=== PATIENT | male | born 1965 | race Caucasian/White ===

== ENCOUNTER → 2016-03-28 | Outpatient (CLI) | payer BC ==
[2016-03-28 11:01] LABS: Hemoglobin A1C 7.5 % (4.2-6.1)
[2016-03-28 11:08] LABS: Bilirubin, Delta 0.3 mg/dL (0.0-0.2); Total Bilirubin 1.9 mg/dL (0.2-1.3); Total Protein 7.3 g/dL (6.3-8.2)
== END | disposition home or self-care (01) ==
LOC: LABWHC1 10:13
PROVIDERS: ATTEND Internal Medicine Endocrinology, Diabetes & Metabolism
DX: E11.69 Type 2 diabetes mellitus with other specified complication (principal); Z79.4 Long term (current) use of insulin
CPT/HCPCS: 36415; 80061; 80076; 82550; 82947; 83036; 84681

== ENCOUNTER 2024-05-19 12:50 | Inpatient (IN) | payer BC ==
[2024-05-19] MEDS: SODIUM CHLORIDE 0.9% 1,000 ML IV SCH (16:30)
[2024-05-19 16:32] LABS: Glucose,Whole Blood 122 mg/dL (70-110)
[2024-05-19] MEDS ORDERED: ALPRAZolam 0.25 MG TAB PO PRN (17:17)
[2024-05-19] MEDS ORDERED: ALPRAZolam 0.5 MG TAB PO PRN (17:17)
[2024-05-19] MEDS ORDERED: HEPARIN SODIUM 1,000 UN/ML (10ML VL) IV PRN (17:22)
[2024-05-19] MEDS ORDERED: ATORVASTATIN 80 MG TAB PO SCH (17:30)
[2024-05-19] MEDS ORDERED: DAPAGLIFLOZIN PROPANEDIOL 5 MG TABLET PO SCH (17:30)
[2024-05-19] MEDS: SODIUM CHLORIDE 0.9% 1,000 ML in EMPTY BAG 1 BAG IV SCH (17:31)
[2024-05-19] MEDS: HEPARIN SOD,PORK IN 0.45% NACL 25,000 UNIT in 0.45% NACL 1 250ML.BAG IV SCH (17:36)
[2024-05-19] MEDS: INSULIN LISPRO (HumaLOG) 100 UNIT/ML 10 mL VL SQ SCH (18:25)
[2024-05-19 19:38] LABS: Basophils % (A) 0 %; Eosinophils % (A) 1 %; HCT 48.1 % (39.0-53.0); HGB 14.4 gm/dL (13.0-17.5); Lymphocytes % (A) 28 %; MCH 26.1 pg (25.0-35.0); MCHC 29.9 g/dL (31.0-37.0); MCV 87.2 fL (80.0-100.0); Mean Platelet Volume 7.9; Monocytes # (A) 0.4 k/uL (0-1.0); Monocytes % (A) 6 %; Neutrophils # (A) 4.6 k/uL (1.3-7.7); Neutrophils % (A) 65 %; Platelet Count 276 k/uL (150-450); RBC 5.52 m/uL (4.30-5.90); WBC 7.1 k/uL (3.8-10.6)
[2024-05-19 20:21] LABS: Glucose,Whole Blood 127 mg/dL (70-110)
[2024-05-19] MEDS: INSULIN GLARGINE (LANTUS) 100 UNIT/ML SYR SQ SCH (21:30)
[2024-05-19] MEDS: METOPROLOL TARTRATE 25 MG TAB PO SCH (21:30)
[2024-05-19] MEDS: ATORVASTATIN 80 MG TAB PO SCH (21:30)
[2024-05-20] MEDS: ASPIRIN 325 MG TAB PO ONE (05:44)
[2024-05-20] MEDS: ATORVASTATIN 80 MG TAB PO ONE (05:44)
[2024-05-20] MEDS: LOSARTAN 25 MG TAB PO SCH (06:26)
[2024-05-20] MEDS: ISOSORBIDE MONONITRATE ER 30 MG TAB.ER.24H PO SCH (06:27)
[2024-05-20 06:38] LABS: Glucose,Whole Blood 131 mg/dL (70-110)
[2024-05-20] MEDS ORDERED: HEPARIN SODIUM,PORCINE (1 ML) 2,500 UNIT in SODIUM CHLORIDE 0.9% 250 ML IRRIGATION PRN (07:00)
[2024-05-20] MEDS ORDERED: HEPARIN SODIUM,PORCINE 10,000 UNIT in SODIUM CHLORIDE 0.9% 1,000 ML IRRIGATION PRN (07:00)
[2024-05-20] MEDS: SODIUM CHLORIDE 0.9% 1,000 ML IV ONE (07:14)
[2024-05-20] MEDS: HEPARIN SODIUM,PORCINE 10,000 UNIT in SODIUM CHLORIDE 0.9% 1,000 ML IRRIGATION ONE (07:15)
[2024-05-20] MEDS: HEPARIN SODIUM,PORCINE (1 ML) 2,500 UNIT in SODIUM CHLORIDE 0.9% 250 ML IRRIGATION ONE (07:15)
[2024-05-20] MEDS: MIDAZOLAM 2 MG/2 ML VIAL IVP ONE (07:38)
[2024-05-20] MEDS: LIDOCAINE 1% INJ 10MG/ML (20 ML MDV) SQ ONE (07:39)
[2024-05-20] MEDS: VERAPAMIL SYRINGE (5 MG/10 ML) INTRAARTER ONE (07:42)
[2024-05-20] MEDS: IOPAMIDOL-370 100ML BTL INJ ONE (07:49)
[2024-05-20] MEDS ORDERED: RX INFO: IV CONTRAST WAS GIVEN 1 EACH MISC MISCELLANE PRN (07:57)
--- NOTE | 2024-05-20 08:04 | P.PCN ---
Date of Procedure: 05/20/24 Operative Findings: CARDIAC CATHETERIZATION PERFORMING PHYSICIAN: You Infante MD, RPVI PROCEDURE PERFORMED: 1. Selective right and left coronary angiogram 2. Left heart catheterization 3. Ultrasound-guided access of the right radial artery INDICATION: Acute coronary syndrome in this 59-year-old gentleman who is known to have diabetes and hypertension and dyslipidemia and coronary artery disease based on heart catheterization in 2012 was treated medically at that point COMPLICATION: None APPROACH: Right radial artery LEVEL OF SEDATION: Moderate with a sedation length of 15 minutes PROCEDURE DESCRIPTION: After obtaining an informed consent, the patient was brought to cardiac slab installer. Local anesthesia was performed using lidocaine subcutaneously. The right radial artery was cannulated using Seldinger technique, under ultrasound guidance, the guidewire passed easily, following that we advanced a 5-Spanish sheath dilator assembly, the wire and dilator were removed and sheath was flushed. Following that, 2 mg of verapamil along with 5000 unit heparin were given. Selective right and left coronary angiogram using a 5-Spanish JR4 and JL 3.5 catheters. Following that we did left heart catheterization using 5-Spanish pigtail catheter. The procedure was completed there was no complication. SELECTIVE CORONARY ANGIOGRAM: The right coronary artery: Large-caliber vessel and a dominant vessel appears to be chronically occluded in the midportion and fills by ipsilateral and contralateral collateral Left main: Has mild disease only and calcified vessel The left circumflex: Large-caliber vessel nondominant vessel. The left circumflex gives rise into an OM1 which is a large-caliber vessel with severe ostial lesion and OM 2 which is also a large-caliber vessel with critical disease as well. The left anterior descending artery: Has a long tubular lesion in the proximal to midportion with critical disease as well HEMODYNAMICS: The LVEDP was about 4 mmHg with no gradient was identified across aortic valve CONCLUSION: 1. Severe triple-vessel CAD with REPAIR CLERK of the RCA and critical LCx and critical LAD as well 2. Low left-sided filling pressure POSTPROCEDURE MANAGEMENT: The patient need to be evaluated for bypass surgery
[2024-05-20] MEDS: SODIUM CHLORIDE 0.9% 1,000 ML IV SCH (08:10)
[2024-05-20 08:17] LABS: Basophils % (A) 0 %; Eosinophils # (A) 0.2 k/uL (0-0.7); Eosinophils % (A) 2 %; HCT 48.3 % (39.0-53.0); HGB 15.1 gm/dL (13.0-17.5); Hypochromasia Slight; Lymphocytes # (A) 2.4 k/uL (1.0-4.8); Lymphocytes % (A) 31 %; MCH 27.2 pg (25.0-35.0); MCHC 31.2 g/dL (31.0-37.0); MCV 87.1 fL (80.0-100.0); Mean Platelet Volume 7.7; Monocytes # (A) 0.5 k/uL (0-1.0); Monocytes % (A) 7 %; Neutrophils # (A) 4.4 k/uL (1.3-7.7); Neutrophils % (A) 58 %; Platelet Count 275 k/uL (150-450); RBC 5.54 m/uL (4.30-5.90); RDW 13.7 % (11.5-15.5); WBC 7.6 k/uL (3.8-10.6)
[2024-05-20] MEDS ORDERED: ASPIRIN 81 MG PO SCH ×2 (09:00)
[2024-05-20] MEDS: DAPAGLIFLOZIN PROPANEDIOL 5 MG TABLET PO SCH (09:47)
[2024-05-20 11:54] LABS: Glucose,Whole Blood 132 mg/dL (70-110)
--- NOTE | 2024-05-20 14:50 | P.PN ---
Subjective Progress Note Date: 05/20/24 This is a 59-year-old male follows with a belly dump driver at [facility] with past medical history of coronary artery disease, diabetes, hypertension, hyperlipidemia. Patient gives history that he had recently seen his belly dump driver and placed on Imdur. He states he has been having some chest discomfort over the past 1-1/2 months which he thought was related to stress and feeling that he could not get a deep breath with some chest discomfort. This was coming and going but he surprisingly did not have it when he was on the elliptical machine. He states it would sometimes come and go when he was going upstairs. He denies any radiation of the pain. He states he woke up on Thursday at 630 and he was having discomfort and he walked around for a little bit was feeling okay. When he was taking the garbage out to the road, he again experienced pain and it was more severe. He then called 911 and went to [facility] where he was evaluated by Dr. Infante. Troponins were elevated at 230 and 739, creatinine was 0.78 and hemoglobin 14.3. Patient was transferred to [facility] for further evaluation. He underwent cardiac catheterization which revealed triple-vessel disease. Patient plans to follow-up with his belly dump driver at [facility]. Blood pressure 119/64, heart rate 48, pulse ox 92% on room air. CBC within normal limits. Echocardiogram performed at [facility] revealed EF of 50%, aortic valve is normal in structure, mild mitral regurgitation. Physical examination: Gen: This is a 59-year-old male in no acute distress VS: reviewed HEENT: Head is atraumatic, normocephalic. Pupils equal, round. Sclerae is anicteric. NECK: Supple. No JVD. LUNGS: Clear to auscultation. No wheezes or rhonchi. No intercostal retractio ns. HEART: Regular rate and rhythm. No murmur. ABDOMEN: Soft No tenderness. EXTREMITIES: No pedal edema. No calf tenderness. NEUROLOGICAL: Patient is awake, alert and oriented x3. Assessment: NSTEMI status post cardiac catheterization with three-vessel disease History of coronary artery disease Diabetes Hypertension Hyperlipidemia Plan: Continue cardiac medications: Aspirin 81 mg daily, Lipitor 80 mg at bedtime, Farxiga 5 mg daily, Imdur 30 mg daily, losartan 25 mg daily, Lopressor 25 mg at bedtime. Plan to monitor patient overnight and discharge home tomorrow. Patient will follow-up outpatient with his belly dump driver at [facility]. Nurse practitioner note has been reviewed, I agree with documented findings and plan of care. Patient was seen and examined. Objective - Vital Signs Vital signs: Vital Signs Temp 98.0 F 05/20/24 03:28 Pulse 48 L 05/20/24 03:28 Resp 18 05/20/24 03:28 BP 119/64 05/20/24 03:28 Pulse Ox 92 L 05/20/24 03:28 FiO2 Intake & Output 05/19/24 05/20/24 05/20/24 18:59 06:59 18:59 Intake Total 307.597 293 Balance 307.597 293 Weight 110.4 kg 110.4 kg Intake: IV 175 Intake, IV Titration 187.597 Amount Heparin Sod,Pork in 0.45% 187.597 NaCl 25,000 unit In 0.45 % NaCl 1 250ml.bag @ 16.7 UNITS/KG/HR 18.437 mls/ hr IV .[id number] [facility] Rx#: [id number] Oral 120 118 Other: Voiding Method Toilet - Labs CBC & Chem 7: 05/20/24 07:09 Labs: Abnormal Lab Results - Last 24 Hours (Table) 05/19/24 05/19/24 05/19/24 Range/Units 16:30 19:01 20:18 MCHC 29.9 L (31.0-37.0) g/dL POC Glucose (mg/dL) 122 H 127 H (70-110) mg/dL 05/20/24 05/20/24 Range/Units 06:30 11:52 MCHC (31.0-37.0) g/dL POC Glucose (mg/dL) 131 H 132 H (70-110) mg/dL
[2024-05-20 16:09] LABS: Glucose,Whole Blood 53 mg/dL (70-110)
[2024-05-20 16:38] LABS: Glucose,Whole Blood 118 mg/dL (70-110)
[2024-05-20] MEDS: NITROGLYCERIN SL TABS 0.4 MG TAB SUBLINGUAL PRN (16:44)
[2024-05-20] MEDS ORDERED: HEPARIN SODIUM 1,000 UN/ML (10ML VL) IV PRN (17:06)
[2024-05-20] MEDS: HEPARIN SOD,PORK IN 0.45% NACL 25,000 UNIT in 0.45% NACL 1 250ML.BAG IV SCH (17:32)
[2024-05-20] MEDS: HEPARIN SODIUM 1,000 UN/ML (10ML VL) IV ONE (17:33)
[2024-05-20 17:47] LABS: Basophils % (A) 0 %; Eosinophils # (A) 0.1 k/uL (0-0.7); Eosinophils % (A) 2 %; HCT 46.7 % (39.0-53.0); HGB 14.3 gm/dL (13.0-17.5); Hypochromasia Moderate; Lymphocytes % (A) 27 %; MCH 27.1 pg (25.0-35.0); MCHC 30.6 g/dL (31.0-37.0); MCV 88.8 fL (80.0-100.0); Mean Platelet Volume 7.3; Monocytes # (A) 0.5 k/uL (0-1.0); Monocytes % (A) 7 %; Neutrophils # (A) 4.6 k/uL (1.3-7.7); Neutrophils % (A) 61 %; Platelet Count 261 k/uL (150-450); RBC 5.26 m/uL (4.30-5.90); RDW 13.7 % (11.5-15.5); WBC 7.5 k/uL (3.8-10.6)
[2024-05-20 17:57] LABS: Partial Thromboplastin Time 22.5 sec (22.0-30.0)
[2024-05-20] MEDS: PANTOPRAZOLE 40 MG TABLET PO STA (19:04)
[2024-05-20] MEDS: NITROGLYCERIN-D5W PMX 50 MG in DEXTROSE/WATER 1 250ML.BAG IV SCH (19:09)
[2024-05-20 20:40] LABS: Glucose,Whole Blood 159 mg/dL (70-110)
[2024-05-21 06:25] LABS: Glucose,Whole Blood 129 mg/dL (70-110)
[2024-05-21] MEDS: PANTOPRAZOLE 40 MG TABLET PO SCH (06:35)
[2024-05-21 06:50] LABS: Basophils % (A) 0 %; Eosinophils # (A) 0.2 k/uL (0-0.7); Eosinophils % (A) 3 %; HCT 44.3 % (39.0-53.0); HGB 13.7 gm/dL (13.0-17.5); Lymphocytes # (A) 2.7 k/uL (1.0-4.8); Lymphocytes % (A) 35 %; MCH 26.8 pg (25.0-35.0); MCV 86.4 fL (80.0-100.0); Monocytes # (A) 0.5 k/uL (0-1.0); Monocytes % (A) 6 %; Neutrophils # (A) 4.1 k/uL (1.3-7.7); Neutrophils % (A) 54 %; Platelet Count 234 k/uL (150-450); RBC 5.12 m/uL (4.30-5.90); RDW 14.1 % (11.5-15.5); WBC 7.5 k/uL (3.8-10.6)
[2024-05-21 06:58] LABS: Prothrombin Time 11.3 sec (10.0-12.5)
[2024-05-21 08:31] VITALS: RESP 18
[2024-05-21] MEDS: ASPIRIN 81 MG PO SCH (08:37)
--- NOTE | 2024-05-21 09:41 | P.GSCN ---
History of Present Illness Consult date: 05/21/24 Reason for Consult: Triple-vessel coronary artery disease, non-STEMI this admission Requesting physician: You Infante History of present illness: This is a 59-year-old gentleman who follows outpatient with Dr. Lambert for primary care as well as a bus monitor out of [facility]. He has a previous medical history of coronary artery disease with no PCI (med management only), hypertension, hyperlipidemia, insulin-dependent diabetes, questionable sleep apnea without home CPAP use, pneumonia greater than 30 days ago, lifelong non-smoker, and significant family history of premature coronary artery disease with both parents and multiple siblings diagnosed with early CAD. Apparently he has been having intermittent chest pain with activity. He saw his primary bus monitor out of [facility] he prescribed Imdur for him. He had significant chest pain a couple days ago and called EMS, who brought him to [facility]. Review of the chart from [facility] reveals EKG with nonspecific ST changes, as well as elevated troponin, he was ruled in for non- STEMI and transferred to [facility] for heart catheterization. This was completed yesterday by Dr. Infante revealing severe triple-vessel coronary artery disease with complete total occlusion of the RCA as well as critical disease in the proximal to midportion of the LAD and severe ostial lesion in the OM 1 branch and OM 2 branch of the left circumflex artery. Due to these findings consultation was placed to cardiothoracic surgery for surgical revascularization recommendations. Review of Systems Review of systems was completed and was negative except as noted - Cardiovascular Reports as per HPI, Reports chest pain Past Medical History Past Medical History: Coronary Artery Disease (CAD), Diabetes Mellitus, Hyperlipidemia, Hypertension, Myocardial Infarction (LA), Pneumonia History of Any Multi-Drug Resistant Organisms: None Reported Past Surgical History: Heart Catheterization Additional Past Surgical History / Comment(s): heart cath 2017 Past Anesthesia/Blood Transfusion Reactions: No Reported Reaction Past Psychological History: No Psychological Hx Reported Smoking Status: Never smoker Past Alcohol Use History: None Reported Past Drug Use History: None Reported - Past Family History Father Family Medical History: Coronary Artery Disease (CAD) Additional Family Medical History / Comment(s): Had CABG x 2 Mother Family Medical History: Coronary Artery Disease (CAD) Additional Family Medical History / Comment(s): Had CABG Brother(s) Family Medical History: Coronary Artery Disease (CAD), Myocardial Infarction (LA) Additional Family Medical History / Comment(s): 2 brothers had early CABG, another brother of myocardial infarction at 48 years old Medications and Allergies Home Medications Medication Instructions Recorded Confirmed Type Aspirin [Adult Low Dose Aspirin EC] 81 mg PO DAILY 05/19/24 05/19/24 History Atorvastatin [Lipitor] 80 mg PO HS 05/19/24 05/19/24 History Empagliflozin [Jardiance] 10 mg PO DAILY 05/19/24 05/19/24 History Insulin Aspart [NovoLOG Flexpen] 24 units SQ AC-TID 05/19/24 05/19/24 History Insulin Glargine,Hum.rec.anlog 15 units SQ HS 05/19/24 05/19/24 History [Toujeo Solostar] Isosorbide Mononitrate ER [Imdur] 30 mg PO DAILY 05/19/24 05/19/24 History Losartan [Cozaar] 25 mg PO DAILY 05/19/24 05/19/24 History Metoprolol Tartrate [Lopressor] 25 mg PO HS 05/19/24 05/19/24 History metFORMIN HCL ER [Glucophage XR] 2,000 mg PO HS 05/19/24 05/19/24 History Allergies Allergy/AdvReac Type Severity Reaction Status Date / Time No Known Allergies Allergy Verified 05/19/24 19:30 Surgical - Exam Vital Signs Temp Pulse Resp BP Pulse Ox 98.8 F 56 L 16 135/71 96 05/19/24 15:44 05/19/24 15:44 05/19/24 15:44 05/19/24 15:44 05/19/24 15:44 CONSTITUTIONAL: Awake and alert, appears comfortable, cooperative, well-deve loped, well-nourished, no pain, no acute distress EYES: Pupils equal, round, reactive to light, normal ocular movement ENT: Moist mucous membranes without oral lesions present NECK: No masses, no bruits, trachea midline RESPIRATORY: Lungs sounds clear to auscultation bilaterally. Respirations even, nonlabored. Currently on room air with oxygen saturation 97%. Strong cough. No chest wall deformities. No clubbing or cyanosis present CARDIOVASCULAR: S1, S2 present. Slow but regular rate and rhythm, sinus bradycardia on telemetry. Palpable peripheral pulses bilaterally. No edema present. No calf pain or tenderness noted. No significant lower extremity varicosities noted GASTROINTESTINAL: Abdomen soft, nontender, nondistended without masses or organomegaly noted. There is no rebound or guarding present. Active bowel sounds present 4 quadrants. GENITOURINARY: Deferred INTEGUMENTARY: Skin is warm and dry with evidence of good perfusion. NEUROLOGIC: Cranial nerves II through XII intact, normal coordination, no obvious motor or sensory deficits, speech is normal MUSKULOSKELETAL: Able to move all extremities, strength equal bilaterally, normal posture PSYCHIATRIC: Alert and oriented to person place and time, appropriate affect, intact judgment and insight CLINICAL FRAILTY SCORE 3 Results - Labs 05/22/24 07:47 05/22/24 07:47 Abnormal Lab Results - Last 24 Hours (Table) 05/20/24 05/20/24 05/20/24 Range/Units 11:52 16:07 16:36 MCHC (31.0-37.0) g/dL APTT (22.0-30.0) sec POC Glucose (mg/dL) 132 H 53 L 118 H (70-110) mg/dL 05/20/24 05/20/24 05/20/24 Range/Units 17:27 20:38 23:34 MCHC 30.6 L (31.0-37.0) g/dL APTT 31.1 H (22.0-30.0) sec POC Glucose (mg/dL) 159 H (70-110) mg/dL 05/21/24 05/21/24 Range/Units 06:22 06:29 MCHC (31.0-37.0) g/dL APTT 38.9 H (22.0-30.0) sec POC Glucose (mg/dL) 129 H (70-110) mg/dL - Imaging EKG: image reviewed Additional studies: Heart catheterization films reviewed Assessment and Plan Assessment: Triple-vessel coronary artery disease, non-STEMI this admission Chest pain, secondary to above History of coronary artery disease with no PCI (med management only at patient's request) Hypertension Hyperlipidemia Insulin-dependent diabetes Questionable sleep apnea without home CPAP use Pneumonia greater than 30 days ago Lifelong non-smoker Significant family history of premature coronary artery disease with both parents and multiple siblings diagnosed with early CAD Plan: The patient was seen and examined with his present this morning. Chart/diagnostics were reviewed. Case will be discussed with Dr. Liz. The usual perioperative course of open-heart surgery was discussed in great detail with the patient and his , risks and benefits reviewed, all questions were answered to the best of my ability. The patient and his are still considering wanting surgery to be done in the [place] area because they have no family up here and are very worried about support and help after surgery. They feel any help or care he would need after surgery should be done in the [place] area where they have many family members living. Will hold off on preoperative testing until decision is made about where surgery will take place as we do not want the patient to have to deal with repeat testing. The patient currently has no chest pain or shortness of breath, he is in good spirits, he and his asked appropriate questions. Continue aspirin, statin, beta- kobi therapy. Needs tight blood sugar control to prevent infection. Heparin, IV nitro per cardiology. Increase activity as tolerated. More recommendations to follow once Dr. Liz has reviewed the case and talk with the patient. Thank you Dr. Infante for this consult, we will continue to follow along with you and make further recommendations as appropriate. I have personally seen and examined the patient, performed the documentation and the assessment and plan as written. Number of minutes spent on the visit: 30. TERRENCE Lino I have seen and examined the patient and agree with the assessment and plan as dictated by the nurse practitioner. Number of minutes spent on the visit:40. Sean Liz MD
[2024-05-21 11:44] LABS: Glucose,Whole Blood 99 mg/dL (70-110)
--- NOTE | 2024-05-21 13:26 | P.PN ---
Subjective Progress Note Date: 05/21/24 This is a 59-year-old male follows with a security installation technician at [facility] with past medical history of coronary artery disease, diabetes, hypertension, hyperlipidemia. Patient gives history that he had recently seen his security installation technician and placed on Imdur. He states he has been having some chest discomfort over the past 1-1/2 months which he thought was related to stress and feeling that he could not get a deep breath with some chest discomfort. This was coming and going but he surprisingly did not have it when he was on the elliptical machine. He states it would sometimes come and go when he was going upstairs. He denies any radiation of the pain. He states he woke up on Thursday at 630 and he was having discomfort and he walked around for a little bit was feeling okay. When he was taking the garbage out to the road, he again experienced pain and it was more severe. He then called 911 and went to [facility] where he was evaluated by Dr. Infante. Troponins were elevated at 230 and 739, creatinine was 0.78 and hemoglobin 14.3. Patient was transferred to [facility] for further evaluation. He underwent cardiac catheterization which revealed triple-vessel disease. Patient plans to follow-up with his security installation technician at [facility]. Blood pressure 119/64, heart rate 48, pulse ox 92% on room air. CBC within normal limits. Echocardiogram performed at [facility] revealed EF of 50%, aortic valve is normal in structure, mild mitral regurgitation. 05/21 Patient seen and examined. Last evening, patient had episode of hypoglycemia and he ate some food following that he developed chest pain very similar to that he had on Thursday that brought him into the hospital. He states he sat up and burped a few times and the discomfort went away. He was started on a heparin drip and nitroglycerin drip at the time. His pain has not returned. He was also started on Protonix. Transfer to [facility] is not really an option at this point and patient given a number of options to consider. He has been seen by cardiothoracic surgery and at this time it seems he still wants to go to the [facility] for surgery. Blood pressure 147/81, heart rate 56, pulse ox 99% on room air. Repeat troponin ordered. Physical examination: Gen: This is a 59-year-old male in no acute distress VS: reviewed HEENT: Head is atraumatic, normocephalic. Pupils equal, round. Sclerae is anicteric. NECK: Supple. No JVD. LUNGS: Clear to auscultation. No wheezes or rhonchi. No intercostal retractions. HEART: Regular rate and rhythm. No murmur. ABDOMEN: Soft No tenderness. EXTREMITIES: No pedal edema. No calf tenderness. NEUROLOGICAL: Patient is awake, alert and oriented x3. Assessment: NSTEMI status post cardiac catheterization with three-vessel disease History of coronary artery disease Diabetes Hypertension Hyperlipidemia Plan: Continue cardiac medications: Aspirin 81 mg daily, Lipitor 80 mg at bedtime, Farxiga 5 mg daily, Imdur 30 mg daily, losartan 25 mg daily, Lopressor 25 mg at bedtime. Continue patient on heparin drip and nitroglycerin drip Obtain repeat troponin Continue to monitor patient overnight Further recommendations will be determined tomorrow after discussion with the patient. Nurse practitioner note has been reviewed, I agree with documented findings and plan of care. Patient was seen and examined. Objective - Vital Signs Vital signs: Vital Signs Temp 98.3 F 05/21/24 08:00 Pulse 55 L 05/21/24 08:00 Resp 18 05/21/24 08:00 BP 164/86 05/21/24 08:00 Pulse Ox 97 05/21/24 08:00 FiO2 Intake & Output 05/20/24 05/21/24 05/21/24 18:59 06:59 18:59 Intake Total 411 89.645 128.616 Balance 411 89.645 128.616 Weight 111.3 kg Intake: IV 175 Intake, IV Titration 89.645 128.616 Amount Heparin Sod,Pork in 0.45% 89.645 128.616 NaCl 25,000 unit In 0.45 % NaCl 1 250ml.bag @ 12 UNITS/KG/HR 13.248 mls/hr IV .[id number] [facility] Rx#: [id number] Oral 236 Other: Voiding Method Toilet Toilet # Voids 1 1 - Labs CBC & Chem 7: 05/21/24 06:29 Labs: Abnormal Lab Results - Last 24 Hours (Table) 05/20/24 05/20/24 05/20/24 Range/Units 11:52 16:07 16:36 MCHC (31.0-37.0) g/dL APTT (22.0-30.0) sec POC Glucose (mg/dL) 132 H 53 L 118 H (70-110) mg/dL 05/20/24 05/20/24 05/20/24 Range/Units 17:27 20:38 23:34 MCHC 30.6 L (31.0-37.0) g/dL APTT 31.1 H (22.0-30.0) sec POC Glucose (mg/dL) 159 H (70-110) mg/dL 05/21/24 05/21/24 Range/Units 06:22 06:29 MCHC (31.0-37.0) g/dL APTT 38.9 H (22.0-30.0) sec POC Glucose (mg/dL) 129 H (70-110) mg/dL
--- NOTE | 2024-05-21 14:17 | P.HPIM ---
History of Present Illness H&P Date: 05/20/24 Chief Complaint: NSTEMI 59-year-old male follows with a surg physician asst at [facility] with past medical history of coronary artery disease, diabetes, hypertension, hy perlipidemia. Patient gives history that he had recently seen his surg physician asst and placed on Imdur. He states he has been having some chest discomfort over the past 1-1/2 months which he thought was related to stress and feeling that he could not get a deep breath with some chest discomfort. This was coming and going but he surprisingly did not have it when he was on the elliptical machine. He states it would sometimes come and go when he was going upstairs. He denies any radiation of the pain. He states he woke up on Thursday at 630 and he was having discomfort and he walked around for a little bit was feeling okay. When he was taking the garbage out to the road, he again experienced pain and it was more severe. He then called 911 and went to [facility] where he was evaluated by Dr. Infante. Troponins were elevated at 230 and 739, creatinine was 0.78 and hemoglobin 14.3. Patient was transferred to [facility] for further evaluation. He underwent cardiac catheterization which revealed triple-vessel disease. --Patient awaits evaluation by cardiothoracic surgery for possible CABG versus transfer to [facility] for further evaluation Review of Systems REVIEW OF SYSTEMS: CONSTITUTIONAL: No fever, no malaise, no fatigue. HEENT: No recent visual problems or hearing problems. Denied any sore throat. CARDIOVASCULAR: No chest pain, orthopnea, PND, no palpitations, no syncope. PULMONARY: No shortness of breath, no cough, no hemoptysis. GASTROINTESTINAL: No diarrhea, no nausea, no vomiting, no abdominal pain. NEUROLOGICAL: No headaches, no weakness, no numbness. HEMATOLOGICAL: Denies any bleeding or petechiae. GENITOURINARY: Denies any burning micturition, frequency, or urgency. MUSCULOSKELETAL/RHEUMATOLOGICAL: Denies any joint pain, swelling, or any muscle pain. ENDOCRINE: Denies any polyuria or polydipsia. The rest of the 14-point review of systems is negative. Past Medical History Past Medical History: Coronary Artery Disease (CAD), Diabetes Mellitus, Hyperl ipidemia, Hypertension History of Any Multi-Drug Resistant Organisms: None Reported Past Surgical History: Heart Catheterization Additional Past Surgical History / Comment(s): heart cath 2016 Past Anesthesia/Blood Transfusion Reactions: No Reported Reaction Past Psychological History: No Psychological Hx Reported Smoking Status: Never smoker - Past Family History Father Family Medical History: Coronary Artery Disease (CAD) Mother Family Medical History: Coronary Artery Disease (CAD) Additional Family Medical History / Comment(s): Had CABG Brother(s) Family Medical History: Coronary Artery Disease (CAD), Myocardial Infarction ([place]) Additional Family Medical History / Comment(s): 2 brothers had early CABG, another brother of myocardial infarction at 48 years old Medications and Allergies Home Medications Medication Instructions Recorded Confirmed Type Aspirin [Adult Low Dose Aspirin EC] 81 mg PO DAILY 05/19/24 05/19/24 History Atorvastatin [Lipitor] 80 mg PO HS 05/19/24 05/19/24 History Empagliflozin [Jardiance] 10 mg PO DAILY 05/19/24 05/19/24 History Insulin Aspart [NovoLOG Flexpen] 24 units SQ AC-TID 05/19/24 05/19/24 History Insulin Glargine,Hum.rec.anlog 15 units SQ HS 05/19/24 05/19/24 History [Toujeo Solostar] Isosorbide Mononitrate ER [Imdur] 30 mg PO DAILY 05/19/24 05/19/24 History Losartan [Cozaar] 25 mg PO DAILY 05/19/24 05/19/24 History Metoprolol Tartrate [Lopressor] 25 mg PO HS 05/19/24 05/19/24 History metFORMIN HCL ER [Glucophage XR] 2,000 mg PO HS 05/19/24 05/19/24 History Allergies Allergy/AdvReac Type Severity Reaction Status Date / Time No Known Allergies Allergy Verified 05/19/24 19:30 Physical Exam Vitals: Vital Signs Temp Pulse Resp BP BP Pulse Ox 05/20/24 03:28 98.0 F 48 L 18 119/64 92 L 05/20/24 02:00 51 L 18 05/20/24 00:00 98.8 F 51 L 18 126/60 95 05/19/24 20:00 97.5 F L 57 L 18 137/69 97 05/19/24 15:44 98.8 F 56 L 16 135/71 138/73 96 Intake and Output 05/19/24 05/20/24 05/20/24 22:59 06:59 14:59 Intake Total 120 187.597 293 Balance 120 187.597 293 Intake: IV 175 Intake, IV Titration 187.597 Amount Heparin Sod,Pork in 0.45% 187.597 NaCl 25,000 unit In 0.45 % NaCl 1 250ml.bag @ 16.7 UNITS/KG/HR 18.437 mls/ hr IV .[id number] [facility] Rx#: [id number] Oral 120 118 Other: Voiding Method Toilet Toilet Weight 110.4 kg CONSTITUTIONAL: Awake and alert, appears comfortable, cooperative, well-deve loped, well-nourished, no pain, no acute distress EYES: Pupils equal, round, reactive to light, normal ocular movement ENT: Moist mucous membranes without oral lesions present NECK: No masses, no bruits, trachea midline RESPIRATORY: Lungs sounds clear to auscultation bilaterally. Respirations even, nonlabored. Currently on room air with oxygen saturation 97%. Strong cough. No chest wall deformities. No clubbing or cyanosis present CARDIOVASCULAR: S1, S2 present. Slow but regular rate and rhythm, sinus bradycardia on telemetry. Palpable peripheral pulses bilaterally. No edema present. No calf pain or tenderness noted. No significant lower extremity varicosities noted GASTROINTESTINAL: Abdomen soft, nontender, nondistended without masses or organomegaly noted. There is no rebound or guarding present. Active bowel sounds present 4 quadrants. GENITOURINARY: Deferred INTEGUMENTARY: Skin is warm and dry with evidence of good perfusion. NEUROLOGIC: Cranial nerves II through XII intact, normal coordination, no obvious motor or sensory deficits, speech is normal MUSKULOSKELETAL: Able to move all extremities, strength equal bilaterally, normal posture PSYCHIATRIC: Alert and oriented to person place and time, appropriate affect, intact judgment and insight Results CBC & Chem 7: 05/21/24 06:29 Labs: Abnormal Lab Results - Last 24 Hours (Table) 05/19/24 05/19/24 05/19/24 Range/Units 16:30 19:01 20:18 MCHC 29.9 L (31.0-37.0) g/dL POC Glucose (mg/dL) 122 H 127 H (70-110) mg/dL 05/20/24 Range/Units 06:30 MCHC (31.0-37.0) g/dL POC Glucose (mg/dL) 131 H (70-110) mg/dL Assessment and Plan Assessment: 1. NSTEMI; patient is status post cardiac catheterization which reveals COURTROOM DEPUTY of RCA, critical left circumflex and critical LAD -Cardiology is recommending evaluation by cardiothoracic surgery for possible CABG -Patient and family currently indecisive about proceeding with surgery if so recommended at our facility versus transfer to [facility] -Patient remains on IV heparin, aspirin, statins and beta-blockers 2. Hypertension; losartan 25 mg daily; Lopressor 25 mg daily; Imdur 30 mg daily 3. Hyperlipidemia; Lipitor 80 mg p.o. nightly 4. Diabetes mellitus type 2 with long-term insulin use; Lantus 15 units SQ nightly with Humalog 24 units SQ before every meal; Farxiga 5 mg daily 5. Gastroesophageal reflux disease; Protonix 40 mg daily VT prophylaxis; SCD/IV heparin CODE STATUS; full code
--- NOTE | 2024-05-21 14:18 | P.PN ---
Subjective Progress Note Date: 05/21/24 59-year-old male follows with a farm contractor buyer at [facility] with past medical history of coronary artery disease, diabetes, hypertension, hyperlipidemia. Patient gives history that he had recently seen his farm contractor buyer and placed on Imdur. He states he has been having some chest discomfort over the past 1-1/2 months which he thought was related to stress and feeling that he could not get a deep breath with some chest discomfort. This was coming and going but he surprisingly did not have it when he was on the elliptical machine. He states it would sometimes come and go when he was going upstairs. He denies any radiation of the pain. He states he woke up on Thursday at 630 and he was having discomfort and he walked around for a little bit was feeling okay. When he was taking the garbage out to the road, he again experienced pain and it was more severe. He then called 911 and went to [facility] where he was evaluated by Dr. Infante. Troponins were elevated at 230 and 739, creatinine was 0.78 and hemoglobin 14.3. Patient was transferred to [facility] for further evaluation. He underwent cardiac catheterization which revealed triple-vessel disease. --Patient awaits evaluation by cardiothoracic surgery for possible CABG versus transfer to [facility] for further evaluation Objective - Vital Signs Vital signs: Vital Signs Temp 98.3 F 05/21/24 08:00 Pulse 52 L 05/21/24 08:00 Resp 18 05/21/24 08:00 BP 164/86 05/21/24 08:00 Pulse Ox 97 05/21/24 08:00 FiO2 Intake & Output 05/20/24 05/21/24 05/21/24 18:59 06:59 18:59 Intake Total 411 89.645 128.616 Balance 411 89.645 128.616 Weight 111.3 kg Intake: IV 175 Intake, IV Titration 89.645 128.616 Amount Heparin Sod,Pork in 0.45% 89.645 128.616 NaCl 25,000 unit In 0.45 % NaCl 1 250ml.bag @ 12 UNITS/KG/HR 13.248 mls/hr IV .[id number] [facility] Rx#: [id number] Oral 236 Other: Voiding Method Toilet Toilet # Voids 1 1 - Exam CONSTITUTIONAL: Awake and alert, appears comfortable, cooperative, well- developed, well-nourished, no pain, no acute distress EYES: Pupils equal, round, reactive to light, normal ocular movement ENT: Moist mucous membranes without oral lesions present NECK: No masses, no bruits, trachea midline RESPIRATORY: Lungs sounds clear to auscultation bilaterally. Respirations even, nonlabored. Currently on room air with oxygen saturation 97%. Strong cough. No chest wall deformities. No clubbing or cyanosis present CARDIOVASCULAR: S1, S2 present. Slow but regular rate and rhythm, sinus bradycardia on telemetry. Palpable peripheral pulses bilaterally. No edema present. No calf pain or tenderness noted. No significant lower extremity varicosities noted GASTROINTESTINAL: Abdomen soft, nontender, nondistended without masses or organomegaly noted. There is no rebound or guarding present. Active bowel sounds present 4 quadrants. GENITOURINARY: Deferred INTEGUMENTARY: Skin is warm and dry with evidence of good perfusion. NEUROLOGIC: Cranial nerves II through XII intact, normal coordination, no obvious motor or sensory deficits, speech is normal MUSKULOSKELETAL: Able to move all extremities, strength equal bilaterally, normal posture - Labs CBC & Chem 7: 05/21/24 06:29 Labs: Abnormal Lab Results - Last 24 Hours (Table) 05/20/24 05/20/24 05/20/24 Range/Units 11:52 16:07 16:36 MCHC (31.0-37.0) g/dL APTT (22.0-30.0) sec POC Glucose (mg/dL) 132 H 53 L 118 H (70-110) mg/dL 05/20/24 05/20/24 05/20/24 Range/Units 17:27 20:38 23:34 MCHC 30.6 L (31.0-37.0) g/dL APTT 31.1 H (22.0-30.0) sec POC Glucose (mg/dL) 159 H (70-110) mg/dL 05/21/24 05/21/24 Range/Units 06:22 06:29 MCHC (31.0-37.0) g/dL APTT 38.9 H (22.0-30.0) sec POC Glucose (mg/dL) 129 H (70-110) mg/dL Assessment and Plan Assessment: 1. NSTEMI; patient is status post cardiac catheterization which reveals SKIVER COUNTER of RCA, critical left circumflex and critical LAD -Cardiology is recommending evaluation by cardiothoracic surgery for possible CABG -Patient and family currently indecisive about proceeding with surgery if so recommended at our facility versus transfer to of -Patient remains on IV heparin, aspirin, statins and beta-blockers 2. Hypertension; losartan 25 mg daily; Lopressor 25 mg daily; Imdur 30 mg daily 3. Hyperlipidemia; Lipitor 80 mg p.o. nightly 4. Diabetes mellitus type 2 with long-term insulin use; Lantus 15 units SQ nightly with Humalog 24 units SQ before every meal; Farxiga 5 mg daily 5. Gastroesophageal reflux disease; Protonix 40 mg daily VT prophylaxis; SCD/IV heparin CODE STATUS; full code
[2024-05-21 16:11] LABS: Glucose,Whole Blood 154 mg/dL (70-110)
[2024-05-21 20:04] LABS: Glucose,Whole Blood 168 mg/dL (70-110)
[2024-05-22 06:02] LABS: Glucose,Whole Blood 134 mg/dL (70-110)
[2024-05-22] MEDS: ACETAMINOPHEN TAB 325 MG TAB PO PRN (06:39)
[2024-05-22 08:16] VITALS: TEMP 97.4
[2024-05-22 08:25] LABS: HCT 50.4 % (39.0-53.0); HGB 15.3 gm/dL (13.0-17.5); Hypochromasia Slight; MCH 26.8 pg (25.0-35.0); MCHC 30.5 g/dL (31.0-37.0); Mean Platelet Volume 7.6; Platelet Count 247 k/uL (150-450); RBC 5.73 m/uL (4.30-5.90); RDW 13.8 % (11.5-15.5); WBC 7.9 k/uL (3.8-10.6)
[2024-05-22 09:25] LABS: ALT 40 U/L (4-49); AST 34 U/L (17-59); African American GFR (CKD) >90 (>60 ml/min/1.73 sqM); Albumin 4.5 g/dL (3.5-5.0); Alkaline Phosphatase 93 U/L (38-126); Anion Gap 9 mmol/L; Blood Urea Nitrogen 17 mg/dL (9-20); Calcium 9.7 mg/dL (8.4-10.2); Carbon Dioxide 26 mmol/L (22-30); Chloride 101 mmol/L (98-107); Glucose 135 mg/dL (74-99); Non-African American GFR(CKD) >90 (>60 ml/min/1.73 sqM); Potassium 4.3 mmol/L (3.5-5.1); Sodium 136 mmol/L (137-145); Total Bilirubin 2.2 mg/dL (0.2-1.3); Total Protein 7.3 g/dL (6.3-8.2)
--- NOTE | 2024-05-22 11:04 | P.PN ---
Subjective Progress Note Date: 05/22/24 Principal diagnosis: Triple-vessel coronary artery disease, non-STEMI this admission. History of coronary artery disease with no PCI (med management only at patient's request), hypertension, hyperlipidemia, insulin-dependent diabetes, questionable sleep apnea without home CPAP use, pneumonia greater than 30 days ago, lifelong non- smoker and significant family history of premature coronary artery disease with both parents and multiple siblings diagnosed with early CAD The patient was seen and examined with Dr. Liz. He currently denies any chest pain or shortness of breath. Remains on IV heparin and nitro. Remains in sinus rhythm, hemodynamically stable. Dr. Liz gave our recommendations for urgent myocardial revascularization surgery within the next couple of days. The patient and his want to think about it, they are still leaning towards being discharged and going to [facility] or [facility] in [place] as that is where all of their family members are. Dr. Liz recommended staying here and having the open heart done this admission, we did discuss being able to go to [place] for recovery after surgery but patient and his expressed that they would prefer to be down in [place] for surgery as that is where their daughter lives along with multiple other family members. They will think about it and discuss with Dr. Zamorano. Objective - Vital Signs Vital signs: Vital Signs Temp 97.4 F L 05/22/24 08:00 Pulse 57 L 05/22/24 08:00 Resp 18 05/22/24 08:00 BP 138/77 05/22/24 08:00 Pulse Ox 93 L 05/22/24 08:00 FiO2 Intake & Output 05/21/24 05/22/24 05/22/24 18:59 06:59 18:59 Intake Total 1076.768 116.048 583.277 Balance 1076.768 116.048 583.277 Weight 110.1 kg Intake: Intake, IV Titration 296.768 116.048 43.277 Amount Heparin Sod,Pork in 0.45% 262.568 116.048 43.277 NaCl 25,000 unit In 0.45 % NaCl 1 250ml.bag @ 12 UNITS/KG/HR 13.248 mls/hr IV .[id number] REPLACED BY [facility] Rx#: [id number] Nitroglycerin-D5w Pmx 50 34.2 mg In Dextrose/Water 1 250ml.bag @ 5 MCG/MIN 1.5 mls/hr IV .Q24H REPLACED BY [facility] Rx#: [id number] Oral 780 540 Other: Voiding Method Toilet # Voids 1 - Exam CONSTITUTIONAL: Appears comfortable, cooperative, no acute distress RESPIRATORY: Lungs sounds diminished bilaterally. Respirations even, nonlabored. Currently on room air with oxygen saturation 93% CARDIOVASCULAR: S1, S2 present. Regular rate and rhythm, sinus rhythm on telemetry. Palpable peripheral pulses bilaterally. No edema present. No calf pain or tenderness noted GASTROINTESTINAL: Abdomen soft, nontender, nondistended. Active bowel sounds present 4 quadrants. Tolerating diet GENITOURINARY: Continues to void INTEGUMENTARY: Skin is warm and dry with evidence of good perfusion NEUROLOGIC: Cranial nerves II through XII intact MUSKULOSKELETAL: Able to move all extremities, strength equal bilaterally, gait normal PSYCHIATRIC: Alert and oriented to person place and time, appropriate affect, intact judgment and insight - Allied health notes Allied health notes reviewed: nursing - Labs CBC & Chem 7: 05/22/24 07:47 05/22/24 07:47 Labs: Abnormal Lab Results - Last 24 Hours (Table) 05/21/24 05/21/24 05/21/24 Range/Units 12:05 14:48 16:10 MCHC (31.0-37.0) g/dL APTT 44.1 H (22.0-30.0) sec Sodium (137-145) mmol/L Glucose (74-99) mg/dL POC Glucose (mg/dL) 154 H (70-110) mg/dL Total Bilirubin (0.2-1.3) mg/dL Troponin I 0.308 H* (0.000-0.034) ng/mL TSH (0.465-4.680) mIU/L 05/21/24 05/22/24 05/22/24 Range/Units 19:59 06:00 07:47 MCHC (31.0-37.0) g/dL APTT 65.5 H (22.0-30.0) sec Sodium (137-145) mmol/L Glucose (74-99) mg/dL POC Glucose (mg/dL) 168 H 134 H (70-110) mg/dL Total Bilirubin (0.2-1.3) mg/dL Troponin I (0.000-0.034) ng/mL TSH (0.465-4.680) mIU/L 05/22/24 05/22/24 Range/Units 07:47 07:47 MCHC 30.5 L (31.0-37.0) g/dL APTT (22.0-30.0) sec Sodium 136 L (137-145) mmol/L Glucose 135 H (74-99) mg/dL POC Glucose (mg/dL) (70-110) mg/dL Total Bilirubin 2.2 H (0.2-1.3) mg/dL Troponin I (0.000-0.034) ng/mL TSH 4.760 H (0.465-4.680) mIU/L Assessment and Plan Assessment: Triple-vessel coronary artery disease, non-STEMI this admission Chest pain, secondary to above History of coronary artery disease with no PCI (med management only at patient's request) Hypertension Hyperlipidemia Insulin-dependent diabetes Questionable sleep apnea without home CPAP use Pneumonia greater than 30 days ago Lifelong non-smoker Significant family history of premature coronary artery disease with both parents and multiple siblings diagnosed with early CAD Plan: Our recommendations are for urgent myocardial revascularization surgery. Patient and are considering Discussed with Dr. Zamorano Increase activity as tolerated Continue current medication regimen More recommendations to follow once patient/family make decision
[2024-05-22 11:07] LABS: T4, Free (Free Thyroxine) 1.57 ng/dL (0.78-2.19)
[2024-05-22 11:31] LABS: Glucose,Whole Blood 70 mg/dL (70-110)
--- NOTE | 2024-05-22 11:53 | P.PN ---
Subjective This is a 59-year-old male follows with a manufacturing engineering intern at [facility] with past medical history of coronary artery disease, diabetes, hypertension, hyperlipidemia. Patient gives history that he had recently seen his manufacturing engineering intern and placed on Imdur. He states he has been having some chest discomfort over the past 1-1/2 months which he thought was related to stress and feeling that he could not get a deep breath with some chest discomfort. This was coming and going but he surprisingly did not have it when he was on the elliptical machine. He states it would sometimes come and go when he was going upstairs. He denies any radiation of the pain. He states he woke up on Thursday at 630 and he was having discomfort and he walked around for a little bit was feeling okay. When he was taking the garbage out to the road, he again experienced pain and it was more severe. He then called 911 and went to [facility] where he was evaluated by Dr. Infante. Troponins were elevated at 230 and 739, creatinine was 0.78 and hemoglobin 14.3. Patient was transferred to [facility] for further evaluation. He underwent cardiac catheterization which revealed triple-vessel disease. Patient plans to follow-up with his manufacturing engineering intern at [facility]. Blood pressure 119/64, heart rate 48, pulse ox 92% on room air. CBC within normal limits. Echocardiogram performed at [facility] revealed EF of 50%, aortic valve is normal in structure, mild mitral regurgitation. 05/21 Patient seen and examined. Last evening, patient had episode of hypoglycemia and he ate some food following that he developed chest pain very similar to that he had on Thursday that brought him into the hospital. He states he sat up and burped a few times and the discomfort went away. He was started on a heparin drip and nitroglycerin drip at the time. His pain has not returned. He was also started on Protonix. Transfer to [facility] is not really an option at this point and patient given a number of options to consider. He has been seen by cardiothoracic surgery and at this time it seems he still wants to go to the [place] area for surgery. Blood pressure 147/81, heart rate 56, pu lse ox 99% on room air. Repeat troponin ordered. 05/22 Patient seen and examined. Patient denies any further chest pain. He has been on nitroglycerin drip at 5 as well as heparin drip. He has met with surgeons and does not desire for surgery here. His main reason is for rehab. Discussions regarding possible rehab and availability of family discussed. Unfortunately has not been able to be transferred to the hospital of his choice. Per patient and he still would rather go to other hospital. Discussed the only options would be leaving AGAINST MEDICAL ADVICE and [facility]. Discussed risks including potential worsening of symptoms, potential IL or . Patient appears to be understanding. Patient believes his chest pain episode from Thursday was more of gas. Physical examination: Gen: This is a 59-year-old male in no acute distress VS: reviewed HEENT: Head is atraumatic, normocephalic. Pupils equal, round. Sclerae is anicteric. NECK: Supple. No JVD. LUNGS: Clear to auscultation. No wheezes or rhonchi. No intercostal retractions. HEART: Regular rate and rhythm. No murmur. ABDOMEN: Soft No tenderness. EXTREMITIES: No pedal edema. No calf tenderness. NEUROLOGICAL: Patient is awake, alert and oriented x3. Assessment: NSTEMI status post cardiac catheterization with three-vessel disease History of coronary artery disease Diabetes Hypertension Hyperlipidemia Plan: Continue cardiac medications: Aspirin 81 mg daily, Lipitor 80 mg at bedtime, Farxiga 5 mg daily, Imdur 30 mg daily, losartan 25 mg daily, Lopressor 25 mg at bedtime. Stop nitroglycerin drip and monitor response. Stop heparin and transition to Lovenox. Discussed recommendations for surgery on an inpatient basis. Discussed I did not recommend him traveling without supervision and without proper transfer however patient wanting to go to other hospital and may leave AMA to go to other emergency department for further workup and treatment/bypass. Objective - Vital Signs Vital signs: Vital Signs Temp 97.4 F L 05/22/24 08:00 Pulse 57 L 05/22/24 08:00 Resp 18 05/22/24 08:00 BP 138/77 05/22/24 08:00 Pulse Ox 93 L 05/22/24 08:00 FiO2 Intake & Output 05/21/24 05/22/24 05/22/24 18:59 06:59 18:59 Intake Total 1076.768 116.048 583.277 Balance 1076.768 116.048 583.277 Weight 110.1 kg Intake: Intake, IV Titration 296.768 116.048 43.277 Amount Heparin Sod,Pork in 0.45% 262.568 116.048 43.277 NaCl 25,000 unit In 0.45 % NaCl 1 250ml.bag @ 12 UNITS/KG/HR 13.248 mls/hr IV .[id number] [facility] Rx#: [id number] Nitroglycerin-D5w Pmx 50 34.2 mg In Dextrose/Water 1 250ml.bag @ 5 MCG/MIN 1.5 mls/hr IV .Q24H [facility] Rx#: [id number] Oral 780 540 Other: Voiding Method Toilet # Voids 1 - Labs CBC & Chem 7: 05/22/24 07:47 05/22/24 07:47 Labs: Abnormal Lab Results - Last 24 Hours (Table) 05/21/24 05/21/24 05/21/24 Range/Units 12:05 14:48 16:10 MCHC (31.0-37.0) g/dL APTT 44.1 H (22.0-30.0) sec Sodium (137-145) mmol/L Glucose (74-99) mg/dL POC Glucose (mg/dL) 154 H (70-110) mg/dL Total Bilirubin (0.2-1.3) mg/dL Troponin I 0.308 H* (0.000-0.034) ng/mL TSH (0.465-4.680) mIU/L 05/21/24 05/22/24 05/22/24 Range/Units 19:59 06:00 07:47 MCHC (31.0-37.0) g/dL APTT 65.5 H (22.0-30.0) sec Sodium (137-145) mmol/L Glucose (74-99) mg/dL POC Glucose (mg/dL) 168 H 134 H (70-110) mg/dL Total Bilirubin (0.2-1.3) mg/dL Troponin I (0.000-0.034) ng/mL TSH (0.465-4.680) mIU/L 05/22/24 05/22/24 Range/Units 07:47 07:47 MCHC 30.5 L (31.0-37.0) g/dL APTT (22.0-30.0) sec Sodium 136 L (137-145) mmol/L Glucose 135 H (74-99) mg/dL POC Glucose (mg/dL) (70-110) mg/dL Total Bilirubin 2.2 H (0.2-1.3) mg/dL Troponin I (0.000-0.034) ng/mL TSH 4.760 H (0.465-4.680) mIU/L
[2024-05-22 12:17] VITALS: BP 165/80; PULSE 54
[2024-05-22 13:02] LABS: Hepatitis A Antibody IgM Nonreactive (Nonreactive); Hepatitis B Core IgM Nonreactive (Nonreactive); Hepatitis B Surface Antigen Nonreactive (Nonreactive); Hepatitis C IgG Antibody Nonreactive (Nonreactive)
[2024-05-22] MEDS: ENOXAPARIN 120 MG/0.8 ML SYRINGE SQ SCH (13:14)
[2024-05-23 07:32] LABS: Chol/HDL Ratio 2.81 Ratio; LDL Cholesterol,Calculated 77.7 mg/dL (0.0-131.0); VLDL Calculation 17.02 mg/dL (5.00-40.00)
[2024-05-24 09:38] LABS: Glucose,Whole Blood 159 mg/dL (70-110)
== END 2024-05-22 13:45 | disposition left against medical advice (07) | DRG 282 ==
LOC: 3SCARD 17:18
PROVIDERS: ADMIT Internal Medicine; ATTEND Internal Medicine
PROC: B2111ZZ Fluoroscopy of Multiple Coronary Arteries using Low Osmolar Contrast (ICD-10-PCS; 2024-05-20)
PROC: 4A023N7 Measurement of Cardiac Sampling and Pressure, Left Heart, Percutaneous Approach (ICD-10-PCS; principal; 2024-05-20 07:30)
DX: I21.4 Non-ST elevation (NSTEMI) myocardial infarction (principal); E11.649 Type 2 diabetes mellitus with hypoglycemia without coma; I10 Essential (primary) hypertension; Z79.4 Long term (current) use of insulin; E78.5 Hyperlipidemia, unspecified; K21.9 Gastro-esophageal reflux disease without esophagitis; I25.10 Atherosclerotic heart disease of native coronary artery without angina pectoris; Z79.82 Long term (current) use of aspirin; Z79.84 Long term (current) use of oral hypoglycemic drugs; Z82.49 Family history of ischemic heart disease and other diseases of the circulatory system; Z79.899 Other long term (current) drug therapy
CPT/HCPCS: 80053; 80061; 80074; 83036; 84439; 84443; 84484; 85025; 85027; 85610; 85730; 93458